=== PATIENT | female | born 1985 | race Asian ===

== ENCOUNTER 2016-06-28 00:07 | Inpatient (IN) ==
[2016-06-28 00:57] LABS: URINE SOURCE VOIDED
[2016-06-28 01:06] LABS: BILIRUBIN URINE NEGATIVE (NEGATIVE); BLOOD URINE 1+ (NEGATIVE); CLARITY CLEAR (CLEAR); COLOR YELLOW; GLUCOSE URINE NEGATIVE (NEGATIVE); LEUKOCYTES URINE NEGATIVE (NEGATIVE); NITRITE URINE NEGATIVE (NEGATIVE); PROTEIN URINE NEGATIVE (NEGATIVE); SP GRAVITY URINE 1.005; UROBILINOGEN URINE NORMAL
[2016-06-28] MEDS ORDERED: PEPCID IV PRN (01:33)
[2016-06-28] MEDS ORDERED: LR 1,000 ML IV SCH (01:33)
[2016-06-28] MEDS ORDERED: ZOFRAN IV PRN (01:33)
[2016-06-28] MEDS ORDERED: TYLENOL PO PRN (01:33)
[2016-06-28] MEDS ORDERED: REGLAN PO ONE (01:33)
[2016-06-28] MEDS ORDERED: PEPCID PO ONE (01:33)
[2016-06-28] MEDS ORDERED: PITOCIN 30 UNITS/LR 30 UNITS/500 ML IV.SOLN IV SCH (01:33)
[2016-06-28] MEDS ORDERED: STADOL IV PRN (01:33)
[2016-06-28] MEDS ORDERED: PEPCID PO PRN (01:33)
[2016-06-28] MEDS ORDERED: KEFZOL 1 GM/D5W 1 GM/50 ML IVPB IV PRN (01:33)
[2016-06-28] MEDS ORDERED: PHENERGAN IV PRN (01:34)
[2016-06-28] MEDS ORDERED: SODIUM CHLORIDE 0.9% INJ PRN (01:34)
[2016-06-28] MEDS ORDERED: SODIUM CHLORIDE 0.9% INJ SCH (01:45)
[2016-06-28] MEDS ORDERED: FENTANYL-BUPIV-NS 2 MCG-0.1% 200 ML EPIDURAL PRN (01:47)
[2016-06-28 02:47] LABS: MANUAL DIFF NEEDED? NO
[2016-06-28] MEDS ORDERED: XYLOCAINE-MPF 1% ONE (02:59)
[2016-06-28 03:00] LABS: BASO% 0.2 % (0.0-0.8); EOS% 1.6 % (0.0-10.0); HEMATOCRIT 37.9 % (37.0-47.0); HEMOGLOBIN 13.2 g/dL (12.0-16.0); IMM GRAN# 0.11 X1000 (0.0-0.04); IMM GRAN% 0.9 % (0.0-0.5); LYMPH# 3.19 X1000 (1.2-3.4); LYMPH% 25.8 % (20.5-51.1); MCHC 34.8 g/dL (33-37); MCV 91.8 FL (81-99); MONO# 0.94 X1000 (0.11-0.59); MONO% 7.6 % (1.7-9.3); NEUT% 63.9 % (42.2-75.2); PLT 315 X1000 (130-400); RBC 4.13 XMIL (4.2-5.4)
[2016-06-28] MEDS ORDERED: MINERAL OIL ONE (03:00)
[2016-06-28] MEDS ORDERED: MINERAL OIL PO PRN ×2 (04:54→08:54)
[2016-06-28] MEDS ORDERED: NORCO-5 PO PRN (04:54)
[2016-06-28] MEDS ORDERED: BENADRYL IV PRN ×2 (04:54→08:54)
[2016-06-28] MEDS ORDERED: BOOSTRIX VACCINE IM ONE (04:54)
[2016-06-28] MEDS ORDERED: PITOCIN 20 UNITS/LR 20 UNITS/1,000 ML IV.SOLN IV SCH ×2 (04:54→08:54)
[2016-06-28] MEDS ORDERED: XYLOCAINE-MPF 1% INJ PRN ×2 (04:54→08:54)
[2016-06-28] MEDS ORDERED: PERCOCET-10 PO PRN ×2 (04:54→08:54)
[2016-06-28] MEDS ORDERED: BENADRYL PO PRN ×2 (04:54→08:54)
[2016-06-28] MEDS ORDERED: MOTRIN PO PRN (04:54)
[2016-06-28] MEDS ORDERED: PERCOCET-5 PO PRN ×2 (04:54→08:54)
[2016-06-28] MEDS ORDERED: PERI MEDS (DERMOPLAST/NUPERCAINAL/TUCKS) MISC PRN ×2 (04:54→08:54)
[2016-06-28] MEDS ORDERED: PITOCIN 30 UNITS/LR 30 UNITS/500 ML IV.SOLN IV ONE ×2 (04:54→08:54)
[2016-06-28] MEDS ORDERED: AMBIEN PO PRN ×2 (04:54→08:54)
[2016-06-28] MEDS ORDERED: M-M-R II VACCINE SUBQ ONE (04:54)
[2016-06-28] MEDS ORDERED: NORCO-10 PO PRN ×2 (04:54→08:54)
[2016-06-28] MEDS ORDERED: HYDROXYZINE IM PRN ×2 (04:54→08:54)
[2016-06-28] MEDS ORDERED: CYTOTEC PO PRN ×2 (04:54→08:54)
[2016-06-28] MEDS ORDERED: PITOCIN IM PRN ×2 (04:54→08:54)
[2016-06-28] MEDS ORDERED: HYDROXYZINE PO PRN ×2 (04:54→08:54)
--- NOTE | 2016-06-28 06:42 | OPERATIVE NOTE ---
PROCEDURE DATE: 06/28/2016 DELIVERING PHYSICIAN: Ravindra Kasper MD TYPE OF DELIVERY: Vaginal delivery with outlet vacuum forceps. ANESTHESIA: IV sedation and local. FINDINGS: At 04:36, a 6 pound 6 ounce male infant was delivered in occiput anterior presentation with a Kiwi outlet vacuum forceps. 's were 9 at 1 minute and 10 at 5 minutes. SUMMARY: Emely Mack is a 31-year-old, primigravida who is at approximately 37 weeks gestation. Her blood type is O positive. Rubella nonimmune. Hepatitis B surface antigen, HIV, and group B strep were all negative. She has had an uncomplicated . She presented to labor and delivery reporting spontaneous rupture membranes that occurred at 8:00 in the evening on 06/27/2016. Rupture of membranes was confirmed. She was 4 cm dilated. She received Stadol and was reexamined later and found to be 9.5 cm dilated. Shortly after that, she was completely dilated and began pushing. There was a low baseline heart rate. After pushing for approximately an hour, patient's efforts became diminished. A decision was made to proceed with outlet forceps delivery. She was placed in dorsal lithotomy position. The perineum was prepped and draped in the usual fashion. Perineum was infiltrated with Xylocaine and small episiotomy was performed. Outlet vacuum forceps was applied easily and with gentle traction, the 's head was delivered. The shoulders and body delivered without complications. The oropharynx was bulb suctioned. The cord was clamped and cut. The infant was handed to the nurses for further care and evaluation. Cord blood was obtained. Placenta was spontaneously delivered and was intact. There was a somewhat velamentous insertion of the cord to the body of the placenta. There was a second-degree midline episiotomy and tear that was repaired in layers using 2-0 Vicryl suture. Blood loss was approximately 200 mL. No complications. Patient remained in the LDR recovering without difficulty. cc: Ravindra Kasper MD
[2016-06-28] MEDS: NORCO-5 PO PRN (09:24)
[2016-06-28] MEDS: MOTRIN PO PRN (09:24)
[2016-06-28] MEDS: PRECARE PO SCH (09:24)
[2016-06-28] MEDS ORDERED: PERICOLACE PO SCH (21:00)
[2016-06-28] MEDS: PERICOLACE PO SCH ×2 (21:26→21:31)
[2016-06-29] MEDS: NORCO-5 PO PRN ×2 (04:35→18:38)
[2016-06-29 06:24] LABS: HEMATOCRIT 30.7 % (37.0-47.0); HEMOGLOBIN 10.4 g/dL (12.0-16.0); MCH 31.6 PG (27-31); MCHC 33.9 g/dL (33-37); MCV 93.3 FL (81-99); MPV 9.2 FL (7.4-10.4); RBC 3.29 XMIL (4.2-5.4)
[2016-06-29] MEDS: PRECARE PO SCH (08:53)
--- NOTE | 2016-06-29 15:18 | PROGRESS NOTE ---
DATE: 06/29/2016 SUBJECTIVE: She is day 1 status post a vacuum assisted vaginal delivery. She is without complaints. OBJECTIVE: Her vital signs are stable. She is afebrile. Physical Examination within normal limits. LABORATORY DATA: Hemoglobin 10.4. ASSESSMENT: day 1. PLAN: Routine care. Probable discharge in the morning. cc: MD Ravindra Cartagena MD
[2016-06-29] MEDS: MOTRIN PO PRN (18:37)
[2016-06-29] MEDS: PERICOLACE PO SCH (21:54)
[2016-06-30] MEDS: PRECARE PO SCH (08:35)
[2016-06-30] MEDS: MOTRIN PO PRN (08:36)
[2016-06-30] MEDS: NORCO-5 PO PRN (08:36)
[2016-06-30] MEDS ORDERED: MYLICON PO PRN (09:22)
[2016-06-30 12:05] VITALS: BP 123/76
[2016-06-30] MEDS ORDERED: M-M-R II VACCINE SUBQ ONE (16:15)
--- NOTE | 2016-07-01 11:54 | DISCHARGE SUMMARY ---
ADMISSION DATE: 06/28/2016 DISCHARGE DATE: 06/30/2016 DIAGNOSIS: Intrauterine at 37 weeks. SECONDARY DIAGNOSIS: Active labor. PRINCIPAL PROCEDURE: Normal spontaneous vaginal delivery. HOSPITAL COURSE: Patient admitted on 06/28/2016 in active labor. After uneventful labor course, patient delivered a viable male infant at 0436 on 06/28/2016, weight 6 pounds 6 ounces. Apgars 9 and 10. The patient subsequently transferred to mother/baby once deemed stable where course remained uneventful. The patient notes lochia less than menses. Her pain is well controlled. No nausea, vomiting. Patient tolerating a regular diet. CONDITION ON DISCHARGE: Stable. ALIMENTATION CAPACITY: Independent. FEEDING CAPACITY: Independent. LOCOMOTION CAPACITY: Independent. REHAB POTENTIAL: Good. PROGNOSIS: Good. DISCHARGE MEDICATIONS: Include Percocet 5/325, -2 tabs p.o. q.6 hours p.r.n. pain. Patient is to maintain a regular diet. PHYSICAL ACTIVITY: As tolerated. Patient is ordered to call or return if fever greater 100.4, heavy vaginal bleeding, foul smelling vaginal discharge or any other acute changes. She is to be discharged home with orders to follow up with Dr. Kasper in 6 weeks. cc: MD Ravindra Rodriguez MD
== END 2016-06-30 17:00 | disposition home or self-care (01) ==
LOC: P.OPLD 00:07 → P.LD 00:13 → P.WC 13:59
PROVIDERS: ADMIT Obstetrics & Gynecology; ATTEND Obstetrics & Gynecology